=== PATIENT | male | born 1980 | race Caucasian/White ===

== ENCOUNTER 2020-01-17 15:54 | Emergency (ER) | payer OTHER ==
[2020-01-17] MEDS ORDERED: NA CHLORIDE 0.9% 1,000 ML ONE (16:50)
[2020-01-17] MEDS ORDERED: FENTANYL CITR 100 MCG/2 ML ONE (16:50)
[2020-01-17 16:52] LABS: Absolute Lymphocytes (CBC) 1.1 K/uL (0.7-4.9); Basophils % 0.5 % (0-1.3); Hematocrit 51.4 % (39.6-49.0); Lymphocytes % 9.8 % (15.3-44.8); MPV 8.4 fL (7.6-11.3); RBC Red Blood Cell Count 5.39 M/uL (4.33-5.43)
[2020-01-17 17:04] LABS: BUN Blood Urea Nitrogen 11 mg/dL (7-18); Bicarbonate 28 mmol/L (21-32); Glucose Level 102 mg/dL (74-106); Potassium 3.7 mmol/L (3.5-5.1); Sodium Level 141 mmol/L (136-145)
[2020-01-17 17:24] LABS: Troponin (Emerg Dept Use Only) < 0.02 ng/mL (0.0-0.045)
[2020-01-17] MEDS ORDERED: CEFAZOLIN/SWI 1gm 1 GM/10 ML SYR ONE (17:32)
[2020-01-17] MEDS ORDERED: TETANUS & DIPHTHERIA TOX,ADULT 0.5 ML VIAL ONE (17:32)
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
[2020-01-17] MEDS ORDERED: HYDROCODONE/APAP 5/325 MG TAB ONE (19:04)
[2020-01-17 19:35] VITALS: BP 176/101; TEMP 97.9; O2SAT 96
--- NOTE | 2020-01-19 07:45 | EKG ---
Test Date: 2020-01-17 Test Time: 18:04:14 Scallop Binder: SHARIFA MEASUREMENT RESULTS: Intervals: Rate: 91 KS: 148 QRSD: 84 QT: 352 QTc: 432 [place]: P: 58 KS: 148 QRS: -20 T: 8 INTERPRETIVE STATEMENTS: Normal sinus rhythm Normal ECG No previous ECG available for comparison Electronically Signed On 01-19-20 07:43:10 CDT by Daron Lei
== END 2020-01-17 19:14 | disposition home or self-care (01) ==
LOC: ER 15:54
DX: S51.042A Puncture wound with foreign body of left elbow, initial encounter (principal); S80.11XA Contusion of right lower leg, initial encounter; S40.022A Contusion of left upper arm, initial encounter; S60.222A Contusion of left hand, initial encounter; V68.5XXA Driver of heavy transport vehicle injured in noncollision transport accident in traffic accident, initial encounter; I10 Essential (primary) hypertension; Z23 Encounter for immunization
CPT/HCPCS: 96365; 96361; 93005; 85025; 80048; 36415; 86900; 86850; 86901; 84484; 70450; 72125; 71260; 74177; 73130; 73080; 90471; 90714; 96375; 99285; Q9967; J3010; J0690; J7030